=== PATIENT | female | born 1995 | race Caucasian/White ===

== ENCOUNTER 2020-04-17 17:10 | Emergency (ER) | payer MEDICAID ==
[~2020-04-17] VITALS: Ht 160 cm; Wt 68.5 kg
[2020-04-17 17:20] VITALS: BP 141/77
--- NOTE | 2020-04-17 17:23 | NUR ---
PT AMBULATED TO BED 12.
--- NOTE | 2020-04-17 17:26 | NUR ---
PT AMBULATED TO RESTROOM FOR URINE SAMPLE.
--- NOTE | 2020-04-17 17:36 | NUR ---
25 Y/O FEMALE C/O LLQ ABD PAIN/SUPRAPUBIC AREA AND VAGINAL PAIN AND SWELLING X1 DAY. PT DENIES VAGINAL BLEEDING AND DISCHARGE. PT RATES PAIN 8/10 THAT IS THROBBING AND NONRADIATING. PT TOOK PAIN MEDS WITH NO RELIEF. PT DENIES HX OF STD. PT STATES THAT SHE HAS FELT "HOT" BUT NEVER TOOK HER TEMPERATURE. PER [facility] MUHAMM[facility], VAGINAL CYST NOTED.PT DENIES N/V/SOB. PT IS A/O X4 WITH EVEN AND UNLABORED RESPIRATIONS. PT LAYING IN BED WITH BED IN LOWEST POSITION, BRAKES LOCKED, X1 SIDERAIL UP. MEDHX: DENIES NKA
--- NOTE | 2020-04-17 17:36 | NUR ---
[facility]EL[facility] MU[facility]AMM[facility] AT BEDSIDE
[2020-04-17] MEDS ORDERED: IBUPROFEN 600 MG TAB PO ONE (17:50)
[2020-04-17] MEDS ORDERED: LIDOCAINE MPF 1% 10 MG/ML VIAL INJ ONE (17:50)
--- NOTE | 2020-04-17 18:15 | NUR ---
[facility]EL[facility] MU[facility]AMM[facility] AT BEDSIDE FOR PROCEDURE.
[2020-04-17] MEDS ORDERED: CEPH500T PO (18:53)
[2020-04-17] MEDS ORDERED: CLIN-178 PO (18:53)
--- NOTE | 2020-04-17 19:16 | NUR ---
Patient discharged with v/s stable. Written and verbal after care instructions given and explained. Patient alert, oriented and verbalized understanding of instructions. Ambulatory with steady gait. All questions addressed prior to discharge. ID band removed. Patient advised to follow up with PMD. Rx of Cephalexin and clindamycin given. Patient educated on indication of medication including possible reaction and side effects. Opportunity to ask questions provided and answered.
[2020-04-17 19:17] VITALS: BP 141/77
== END 2020-04-17 19:16 | disposition home or self-care (01) ==
LOC: MED 17:10
DX: N75.1 Abscess of Bartholin's gland (principal); Z79.899 Other long term (current) drug therapy
CPT/HCPCS: 56420; 81002; 81025; 99284; J2001; 99283

== ENCOUNTER 2020-04-30 11:52 | Emergency (ER) | payer MEDICAID ==
[~2020-04-30] VITALS: Ht 160 cm; Wt 54.4 kg
[~2020-04-30 11:52] MED LIST: CEPH500T PO; CLIN-178 PO
[2020-04-30 11:55] VITALS: BP 130/88
[2020-04-30 12:21] VITALS: BP 130/88
== END 2020-04-30 12:21 | disposition home or self-care (01) ==
LOC: MED 11:52
DX: N75.1 Abscess of Bartholin's gland (principal); Z48.00 Encounter for change or removal of nonsurgical wound dressing
CPT/HCPCS: 99281

== ENCOUNTER 2021-04-24 20:22 | Emergency (ER) | payer MEDICAID ==
[~2021-04-24] VITALS: Ht 154.9 cm; Wt 68.9 kg
[~2021-04-24 20:22] MED LIST changes: -CLIN-178 PO; +CLIN300C52 PO
[2021-04-24 20:33] VITALS: BP 121/63
--- NOTE | 2021-04-24 21:09 | NUR ---
er md at bedside examining pt
[2021-04-24] MEDS ORDERED: LIDOCAINE MPF 1% 5 ML ONE (21:13)
--- NOTE | 2021-04-24 21:18 | NUR ---
md at bedside performing pelvic exam
--- NOTE | 2021-04-24 21:22 | NUR ---
26 Y/O FEMALE BIB SELF, C/O PAIN AFTER VAGINAL CYST DRAINAGE X SATURDAY TO THE LEFT LABIA. PATIENT PRESENTS TO ED WITH DRAINAGE TUBE IN PLACE. DENIES N/V/D; SKIN IS PINK/WARM/DRY; AAOX4 WITH EVEN AND STEADY GAIT; LUNGS CLEAR BL; HR EVEN AND REGULAR; PT DENIES ANY FEVER, CP, SOB, OR COUGH AT THIS TIME; VSS; PATIENT POSITIONED FOR COMFORT; HOB ELEVATED; BEDRAILS UP X2; BED DOWN. ER MD MADE AWARE OF PT STATUS.
[2021-04-24 21:50] VITALS: BP 121/63
--- NOTE | 2021-04-24 21:51 | NUR ---
Patient discharged with v/s stable. Written and verbal after care instructions given and explained. Patient verbalized understanding. Ambulatory with steady gait. All questions addressed prior to discharge. PT highly advised to follow up with PMD within the recommneded time on the DC instructions. VSS, A/OX4, UNLABORED BREATHING, AMBULATORY, AND CALM DEMEANOR.
== END 2021-04-24 21:51 | disposition home or self-care (01) ==
LOC: MED 20:22
DX: N75.0 Cyst of Bartholin's gland (principal)
CPT/HCPCS: 56405; 99284; J2001